=== PATIENT | female | born 1955 | race Caucasian/White ===

== ENCOUNTER 2016-06-20 15:18 | Day surgery (SDC) | payer BC ==
[~2016-06-20] VITALS: Ht 162.6 cm; Wt 89.4 kg
--- NOTE | 2016-06-20 17:06 | DIAGNOSTIC IMAGING REPORT ---
PROCEDURE: XR HIP 2VW W W/O AP PELVIS-RT INDICATION: TRAUMA/INJURY TECHNIQUE: AP view of the pelvis and hips with lateral view of the right hip. COMPARISON: None. FINDINGS: RIGHT HIP: Total hip arthroplasty components are in present. There is an anterior, slightly superior dislocation of the femoral acetabular joint. No fracture. PELVIS: Mildly decreased mineralization. Left hip arthroplasty components in anatomic position. No pelvic fractures. 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 Vascular calcifications in the pelvis. No suspicious soft tissue calcification. IMPRESSION: 1. Anteriorly, and severely dislocated right hip arthroplasty components. 2. No evidence of fracture. 3. Left hip arthroplasty components in anatomic position.
--- NOTE | 2016-06-20 21:06 | ED ORDER SUMMARY ---
..... Patient: CARMELLA CLAIRE OrderSheet [facility] VisitID: [id number] [address] [place] [address] 60y, F Registration Date/Time: 06/20/2016 ORDER SHEET Weight: 86.1 kg (stated) Allergies: No Known Drug Allergy GENERAL ORDERS: Hip 2V Right w AP Pelvis Urgent (15:57 06/20/2016 Codie NOEL) (Ack 16:03 Jaye) (16:06 EHassan R.N.) Hip 1V Right Urgent (19:45 06/20/2016 Taya per protocol) (Ack 19:54 Taya) (20:06 RFay) CBC w Diff Urgent (20:56 06/20/2016 Yasmine R.N. verbal order read back to Codie NOEL) (Ack 21:02 Taya) (21:18 EHassan R.N.) CMP Urgent (20:56 06/20/2016 Yasmine R.N. verbal order read back to Codie NOEL) (Ack 21:02 Taya) (21:18 EHassan R.N.) BMP Urgent (20:56 06/20/2016 Yasmine R.N. verbal order read back to Codie NOEL) (Ack 21:02 Taya) (21:18 EHassan R.N.) MEDICATION ORDERS: IV FLUIDS: Dilaudid IV 2 mg (NOW) (15:53 06/20/2016 Yasmine R.N. verbal order read back to Codie NOEL) (16:06 EHassan R.N.) Toradol IV 30 mg (NOW) (15:57 06/20/2016 Codie NOEL) (16:06 EHassan R.N.) Propofol IV 1 vial to bedside (HIGH ALERT MEDICATION) (17:30 06/20/2016 Codie NOEL) (19:20 EHassan R.N.) Dilaudid IV 2 mg (HIGH ALERT MEDICATION, NOW) (18:54 06/20/2016 Codie NOEL) (19:19 EHassan R.N.) ORDER SHEET NOTES: [Electronically signed by Jennie Barr R.N. (23:06/20/2016)] [Electronically signed by Carmella Martin MD (06:12 06/25/2016)] [Electronically locked/signed by Jennie Barr R.N. (23:06/20/2016)]
--- NOTE | 2016-06-20 21:06 | ED CLINICAL REPORT ---
Clinical Report - Physicians/Mid Levels [facility] [address] [place] [address] 06/20/2016 15:20 Patient: CARMELLA CLAIRE Time Seen: 15:21. Arrived- By private vehicle. Historian- patient. HISTORY OF PRESENT ILLNESS Chief Complaint: RIGHT HIP INJURY. The injury occurred just prior to arrival. (PT was stretching, and felt her hip pop out. Pt states this happened once, a year ago.). (gym). The patient complains of moderate pain. No blow to the head, neck pain, loss of consciousness or seizure. Not dazed. (Medics report that pt bit one of them en-route, stating it was because she was hurting.). REVIEW OF SYSTEMS No numbness, hearing loss, headache, loss of vision or chest pain. No weakness, abdominal pain, nausea, difficulty breathing or bladder dysfunction. No laceration, fever or vomiting. Has not recently been ill. All systems otherwise negative, except as recorded above. PAST HISTORY Problems: no known problems. Additional Surgeries: Hip Prosthesis. Medications: Oxybutynin Chloride Oral 15 mg, at bedtime. Oxybutynin Chloride Oral 15 mg, at bedtime. Oxybutynin Chloride Oral 15 mg, at bedtime. Allergies: No Known Drug Allergy. SOCIAL HISTORY Smoker- current status unknown. Occasional alcohol use. No drug use. ADDITIONAL NOTES The nursing notes have been reviewed. PHYSICAL EXAM Vital Signs: 06/20/2016 15:17 BP: 133/63. HR: 89. RR: 18. O2 saturation: 100%. Temp: 98.2 F. Pain level now: 7/10. Have been reviewed. Appearance: Alert. Oriented X3. No acute distress. (Pt appears in moderate discomfort, worse with any movement that causes even slight movement of her hip.). Head: Head non-tender. No swelling of head. Eyes: Pupils equal, round and reactive to light. EOM intact. ENT: No dental injury. Neck: Painless ROM. Non-tender. CVS: Heart sounds normal. Pulses normal. Respiratory: Breath sounds normal. Chest nontender. Abdomen: No visible injury. Soft and nontender. Back: No tenderness. ROM normal. Skin: Skin intact. Skin warm and dry. Normal skin color. Normal skin turgor. Extremities: Pelvis stable. Right hip: moderate tenderness located in the anterior and lateral aspect of the hip. The right leg is adducted. Limited ROM secondary to pain. Neurovascular intact distally. No erythema, swelling, laceration, abrasion or ecchymosis. No puncture wound, foreign body or deformity. The right leg is not shortened, externally rotated, internally rotated, flexed or abducted. (Distal pulses are intact.). Neuro: Oriented X 3. No motor deficit. No sensory deficit. LABS, X-RAYS, AND EKG Rt Hip X-ray: No fracture. No bony lesion, air in the soft tissue or foreign body. Anterior dislocation of the hip. No fracture. Soft tissues normal. (Pt is noted to have a total hip replacement.). Views: 2 view hip series. Technique: good. The X-rays were independently viewed by me, interpreted by the radiologist and contemporaneously by me and discussed with the radiologist. Prior films were not available for comparison. Pulse Oximetry: 06/20/2016 15:17 O2 saturation: 100%. (FIO2 - room air). Interpretation: normal. PROGRESS AND PROCEDURES Procedural Sedation: Indication: Reduction of dislocation of hip. Last po intake: patient had lunch. ASA classification: 1 - normal healthy patient. History / physical exam. See physical exam recorded above. She has no history of an adverse anesthesia reaction or family history of an adverse anesthesia reaction. Normal airway anatomy. Preparation: consent was obtained and the risks of the procedure, benefits and alternatives were explained to patient. IV established. O2 administered. Placed on pulse oximeter and roller presser operator. Suction was made available. Medications: Propofol IV administered by physician. Patient status during sedation: was asleep with sluggish response to stimulation. Vitals were stable. Oxygen saturation levels were normal. The airway was maintained. The recovery was uneventful. Complications: None. Post-procedure: Recovery was uneventful. Returned to baseline. Mental status normal. No acute distress. Sedation and procedure performed by me; intra-service time 1-15 minutes. ( Pt did require multiple doses of propofol, with a total of 200mg, and was still moaning during efforts.). Reduction of Dislocated Hip: IV established. O2 administered. Placed on pulse oximeter and roller presser operator. Sciatic nerve intact pre-procedure. Given Propofol. Hip prosthesis present. Reassessed post-procedure: neurovascular status intact; sciatic nerve function appears normal. Reduction of the anterior hip dislocation was attempted by adduction, external rotation, and counter-traction at the base of the femur, as recommended by the orthopedist. This was attempted several times while the pt was sedated, without success. Course of Care: Pt was given Dilaudid for pain. Sedation and reduction attempts as above. Discussed case with health care provider (Gary/ortho: will take pt to OR for reduction). Reviewed test results. Agreed upon treatment plan. Health care provider will see patient in ED. Patient and spouse counseled in person regarding the patient's stable but serious condition, test results, diagnosis and need for surgery. Concerns were addressed. Old medical records reviewed. Disposition: Admitted via Surgery. Condition: stable. CLINICAL IMPRESSION Right anterior hip dislocation. (Electronically signed by Carmella Martin MD 06/25/2016 6:12)
--- NOTE | 2016-06-20 21:06 | ED ORDER SUMMARY ---
..... Patient: CARMELLA CLAIRE OrderSheet [facility] VisitID: [id number] [address] [place] [address] 60y, F Registration Date/Time: 06/20/2016 ORDER SHEET Weight: 86.1 kg (stated) Allergies: No Known Drug Allergy GENERAL ORDERS: Hip 2V Right w AP Pelvis Urgent (15:57 06/20/2016 Codie NOEL) (Ack 16:03 Jaye) (16:06 EHassan R.N.) Hip 1V Right Urgent (19:45 06/20/2016 Taya per protocol) (Ack 19:54 Taya) (20:06 RFay) CBC w Diff Urgent (20:56 06/20/2016 Yasmine R.N. verbal order read back to Codie NOEL) (Ack 21:02 Taya) (21:18 EHassan R.N.) CMP Urgent (20:56 06/20/2016 Yasmine R.N. verbal order read back to Codie NOEL) (Ack 21:02 Taya) (21:18 EHassan R.N.) BMP Urgent (20:56 06/20/2016 Yasmine R.N. verbal order read back to Codie NOEL) (Ack 21:02 Taya) (21:18 EHassan R.N.) MEDICATION ORDERS: IV FLUIDS: Dilaudid IV 2 mg (NOW) (15:53 06/20/2016 Yasmine R.N. verbal order read back to Codie NOEL) (16:06 EHassan R.N.) Toradol IV 30 mg (NOW) (15:57 06/20/2016 Codie NOEL) (16:06 EHassan R.N.) Propofol IV 1 vial to bedside (HIGH ALERT MEDICATION) (17:30 06/20/2016 Codie NOEL) (19:20 EHassan R.N.) Dilaudid IV 2 mg (HIGH ALERT MEDICATION, NOW) (18:54 06/20/2016 Codie NOEL) (19:19 EHassan R.N.) ORDER SHEET NOTES: [Electronically signed by Jennie Barr R.N. (23:06/20/2016)] [Electronically signed by Carmella Martin MD (06:12 06/25/2016)] [Electronically locked/signed by Jennie Barr R.N. (23:06/20/2016)]
--- NOTE | 2016-06-20 21:06 | ED CLINICAL REPORT ---
Clinical Report - Physicians/Mid Levels [facility] [address] [place] [address] 06/20/2016 15:20 Patient: CARMELLA CLAIRE Time Seen: 15:21. Arrived- By private vehicle. Historian- patient. HISTORY OF PRESENT ILLNESS Chief Complaint: RIGHT HIP INJURY. The injury occurred just prior to arrival. (PT was stretching, and felt her hip pop out. Pt states this happened once, a year ago.). (gym). The patient complains of moderate pain. No blow to the head, neck pain, loss of consciousness or seizure. Not dazed. (Medics report that pt bit one of them en-route, stating it was because she was hurting.). REVIEW OF SYSTEMS No numbness, hearing loss, headache, loss of vision or chest pain. No weakness, abdominal pain, nausea, difficulty breathing or bladder dysfunction. No laceration, fever or vomiting. Has not recently been ill. All systems otherwise negative, except as recorded above. PAST HISTORY Problems: no known problems. Additional Surgeries: Hip Prosthesis. Medications: Oxybutynin Chloride Oral 15 mg, at bedtime. Oxybutynin Chloride Oral 15 mg, at bedtime. Oxybutynin Chloride Oral 15 mg, at bedtime. Allergies: No Known Drug Allergy. SOCIAL HISTORY Smoker- current status unknown. Occasional alcohol use. No drug use. ADDITIONAL NOTES The nursing notes have been reviewed. PHYSICAL EXAM Vital Signs: 06/20/2016 15:17 BP: 133/63. HR: 89. RR: 18. O2 saturation: 100%. Temp: 98.2 F. Pain level now: 7/10. Have been reviewed. Appearance: Alert. Oriented X3. No acute distress. (Pt appears in moderate discomfort, worse with any movement that causes even slight movement of her hip.). Head: Head non-tender. No swelling of head. Eyes: Pupils equal, round and reactive to light. EOM intact. ENT: No dental injury. Neck: Painless ROM. Non-tender. CVS: Heart sounds normal. Pulses normal. Respiratory: Breath sounds normal. Chest nontender. Abdomen: No visible injury. Soft and nontender. Back: No tenderness. ROM normal. Skin: Skin intact. Skin warm and dry. Normal skin color. Normal skin turgor. Extremities: Pelvis stable. Right hip: moderate tenderness located in the anterior and lateral aspect of the hip. The right leg is adducted. Limited ROM secondary to pain. Neurovascular intact distally. No erythema, swelling, laceration, abrasion or ecchymosis. No puncture wound, foreign body or deformity. The right leg is not shortened, externally rotated, internally rotated, flexed or abducted. (Distal pulses are intact.). Neuro: Oriented X 3. No motor deficit. No sensory deficit. LABS, X-RAYS, AND EKG Rt Hip X-ray: No fracture. No bony lesion, air in the soft tissue or foreign body. Anterior dislocation of the hip. No fracture. Soft tissues normal. (Pt is noted to have a total hip replacement.). Views: 2 view hip series. Technique: good. The X-rays were independently viewed by me, interpreted by the radiologist and contemporaneously by me and discussed with the radiologist. Prior films were not available for comparison. Pulse Oximetry: 06/20/2016 15:17 O2 saturation: 100%. (FIO2 - room air). Interpretation: normal. PROGRESS AND PROCEDURES Procedural Sedation: Indication: Reduction of dislocation of hip. Last po intake: patient had lunch. ASA classification: 1 - normal healthy patient. History / physical exam. See physical exam recorded above. She has no history of an adverse anesthesia reaction or family history of an adverse anesthesia reaction. Normal airway anatomy. Preparation: consent was obtained and the risks of the procedure, benefits and alternatives were explained to patient. IV established. O2 administered. Placed on pulse oximeter and ekg monitor tech. Suction was made available. Medications: Propofol IV administered by physician. Patient status during sedation: was asleep with sluggish response to stimulation. Vitals were stable. Oxygen saturation levels were normal. The airway was maintained. The recovery was uneventful. Complications: None. Post-procedure: Recovery was uneventful. Returned to baseline. Mental status normal. No acute distress. Sedation and procedure performed by me; intra-service time 1-15 minutes. ( Pt did require multiple doses of propofol, with a total of 200mg, and was still moaning during efforts.). Reduction of Dislocated Hip: IV established. O2 administered. Placed on pulse oximeter and ekg monitor tech. Sciatic nerve intact pre-procedure. Given Propofol. Hip prosthesis present. Reassessed post-procedure: neurovascular status intact; sciatic nerve function appears normal. Reduction of the anterior hip dislocation was attempted by adduction, external rotation, and counter-traction at the base of the femur, as recommended by the orthopedist. This was attempted several times while the pt was sedated, without success. Course of Care: Pt was given Dilaudid for pain. Sedation and reduction attempts as above. Discussed case with health care provider (Gary/ortho: will take pt to OR for reduction). Reviewed test results. Agreed upon treatment plan. Health care provider will see patient in ED. Patient and spouse counseled in person regarding the patient's stable but serious condition, test results, diagnosis and need for surgery. Concerns were addressed. Old medical records reviewed. Disposition: Admitted via Surgery. Condition: stable. CLINICAL IMPRESSION Right anterior hip dislocation. (Electronically signed by Carmella Martin MD 06/25/2016 6:12)
--- NOTE | 2016-06-20 21:06 | ED NURSING NOTES ---
Clinical Report - Nurses [facility] [address] [place] [address] 06/20/2016 15:20 Patient: JB CLAIRE TRIAGE Triage time 1515 PM. Acuity: LEVEL 4. Alert. No acute distress. ALEKSANDAR COMA SCORE: Aleksandar Coma Scale: 15- eyes open spontaneously (4); best verbal response- oriented x 4 (5); best motor response- obeys commands (6). --15:31 Jennie Barr R.N. 15:17 06/20/16. BP: 133/63. HR: 89. RR: 18. O2 saturation: 100% on room air. Temp: 98.2 F (oral). Pain level now: 10. --15:31 Jennie Barr R.N. Acuity: LEVEL 2. --17:48 Yaima Benz R.N. Chief Complaint: (Hip dislocation). --22:59 Jennie Barr R.N. Weight: 86.1 kg stated. Height/Length: 64 inches Per Patient. BMI: 32.6. --15:17 Jennie Barr R.N. Medications Oxybutynin Chloride Oral 15 mg, at bedtime. --15:22 Jennie Barr R.N. Medication/allergy information source: the patient. --15:31 Jennie Barr R.N. Allergies No Known Drug Allergy. --15:21 Jennie Barr R.N. History Arrived by EMS. Historian: patient. Primary physician ([place] chung- Dr. Perez). ( Pt brought by EMS from the gym. Pt states that while stretching (hanging from the monkey bars) trying to stretch her back, feet on the ground and unsure of how her right hip pop. Pt denies any hyper extending at the time. Pt has pain and admits to some numbness in her right foot). This occurred today. Occurred (gym). The patient has had numbness. No loss of consciousness. No headache, neck pain, back pain or weakness. Treatment SENIOR CYTOGENETIC TECHNOLOGIST: None. Trauma activation: Pre-hospital notification of patient arrival was received. PAST MEDICAL HX: Tetanus status: unknown. Immunizations: up-to-date. The patient is post-menopausal. SOCIAL HX: Former smoker, end date 1997. Occasional alcohol use; consumes three glasses of wine. No drug use. ABUSE ASSESSMENT: No report of abuse. SELF HARM ASSESSMENT: A self harm assessment was performed. The patient answered "no" to the question "Do you have thoughts of harming or killing yourself?" and "Have you recently had thoughts about harming or killing others?". FALL RISK ASSESSMENT: Fall risk assessment completed. No fall risk identified. NUTRITIONAL RISK ASSESSMENT: The nutritional risk assessment revealed no deficiencies. FUNCTIONAL ASSESSMENT: Functional assessment: no impairments noted. LEARNING NEEDS ASSESSMENT: The learning needs assessment revealed no barriers. SKIN INTEGRITY ASSESSMENT: Skin integrity risk assessment completed. No skin integrity risk identified. --15:31 Jennie Barr R.N. Interventions ID band on patient. --15:31 Jennie Barr R.N. PHYSICAL ASSESSMENT To room via stretcher. GENERAL / NEURO / PSYCH: Alert. Oriented X 4. Appears in no acute distress. The patient has had new onset of constant numbness of the right foot. RESPIRATORY: Respirations not labored. Breath sounds within normal limits. CVS: Pulses within normal limits. Pulses: right dorsalis pedis 4+ and right posterior tibial 4+. Capillary refill less than 2 seconds. GI / : Abdomen soft and nontender. EXTREMITIES: Neuro-vascular status intact to the extremity. Right hip: tenderness of the anterior, medial and lateral aspect of the hip. Limited ROM secondary to pain. No deformity. SKIN: Skin intact. Skin is warm and dry. --15:32 Jennie Barr R.N. NURSING PROGRESS NOTES 15:32 06/20/16. BP: 121/75. HR: 86. RR: 15 (regular and unlabored). O2 saturation: 98% on room air. Pain level now: 11/01. --15:35 Jennie Barr R.N. The initial plan of care for this patient has been created This plan of care was discussed with the patient. Neuro-vascular extremity check distal to injury: pulses intact, no edema, capillary refill <2 seconds and sensation diminished (on top of right foot). Reassurance given. Two patient identifiers checked. Call light placed in reach. Side rails up x 2. Bed placed in lowest position. Brakes of bed on. --15:35 Jennie Barr R.N. 15:54 06/20/2016 Site #1 started via IV in the left antecubital space with an 20g angiocath; one attempt. Blood drawn: rainbow set. Labeled in the presence of the patient and sent to the lab. --15:54 Jennie Barr R.N. 16:06 06/20/2016 Dilaudid (HYDROmorphone HCl PF) IVP 2 mg given over 2 minute(s) via site #1. Allergies verified, confirmed 5 rights and sedative warning given to the patient and patient's family. IV patency established. IV site checked: no pain, redness, or swelling. IV flushed thoroughly pre- and post-medication administration. IVP given by RN. --16:06 Jennie Barr R.N. 16:06 06/20/2016 Toradol IVP 30 mg given over 30 second(s) via site #1. Allergies verified and confirmed 5 rights. IV patency established. IV site checked: no pain, redness, or swelling. IV flushed thoroughly pre- and post-medication administration. IVP given by RN. --16:06 Jennie Barr R.N. Patient gowned. Reassurance given. Reassessment after medication administered. She has had no adverse reaction. ( Pt taken off the board, being xray now, IV placed and pain meds given as ordered with good relief. Family updated and at bedside.). Patient transported to radiology by stretcher. (1616 PM). Two patient identifiers checked. --16:18 Jennie Barr R.N. 16:16 06/20/16. HR: 78. RR: 13. O2 saturation: 98% on room air. Pain level now: 08/02. --16:18 Jennie Barr R.N. 18:54 06/20/2016 Dilaudid (HYDROmorphone HCl PF) IVP 2 mg given over 2 minute(s) via site #1. Allergies verified, confirmed 5 rights and sedative warning given to the patient and patient's family. IV patency established. IV site checked: no pain, redness, or swelling. IV flushed thoroughly pre- and post-medication administration. IVP given by RN. --19:19 Jennie Barr R.N. 19:20 06/20/2016 PROPOFOL IVP 100 mg given over 5 minute(s) via site #1. Allergies verified and confirmed 5 rights. IV patency established. IV site checked: no pain, redness, or swelling. IV flushed thoroughly pre- and post-medication administration. IVP given by RN. --19:20 Jennie Barr R.N. ( Assumed care of Pt while Primary RN is on break. Pt is resting, stable, awaiting Ortho to reduce. Pt denies needs, spouse at bedside.). --20:25 Junior Cruz R.N. late entry - 17:00. --20:59 Jennie Barr R.N. 17:06 06/20/16. BP: 116/56 (regular adult cuff) taken on the right arm, via an automated monitor, while lying. HR: 74. RR: 15. O2 saturation: 100% on room air. Temp: 97.6 F (oral). Pain level now: 08/02. --20:59 Jennie Barr R.N. 18:09 06/20/16. BP: 101/73. HR: 87. RR: 19. O2 saturation: 99%. Temp: 98.2 F (oral). Pain level now: 10/02. --21:01 Jennie Barr R.N. late entry - 18:00. Reassurance given. Reassessment after medication administered. She is calm and resting quietly and has had no adverse reaction. GENERAL / NEURO / PSYCH: The patient reports pain. The patient reports numbness. Denies tingling. CVS: Capillary refill less than 2 seconds. GI / : Denies nausea or vomiting. SKIN: Skin is warm and dry. --21:01 Jennie Barr R.N. 19:00 06/20/16. BP: 117/62. HR: 95. RR: 18. O2 saturation: 100%. Pain level now: 10/02. --21:02 Jennie Barr R.N. ( Time out performed for right hip reduction, RT in place, monitoring in place, sedation administered as per MD. Pt tolerated procedure well, xray obtained, unable to reset, ortho called.). --21:05 Jennie Barr R.N. 19:30 06/20/16. BP: 125/60. HR: 74. RR: 14. O2 saturation: 100%. O2 started via nasal cannula at 2 liters/minute. Temp: 97.5 F (oral). Pain level now: 10/02. Additional comments: reduction iniated. --21:05 Jennie Barr R.N. 19:45 06/20/16. BP: 101/53 (regular adult cuff) taken on the right arm, via an automated monitor, while lying. HR: 88. RR: 12. O2 saturation: 97%. O2 started via nasal cannula at 2 liters/minute. Pain level now: 10/02. --21:07 Jennie Barr R.N. Reassurance given. ( Pt post procedure, aware of unable to reset hip in place. VSS, schofield maintained, hip precautions in place). Two patient identifiers checked. Call light placed in reach. --21:07 Jennie Barr R.N. 21:15 06/20/2016 Site #1 reassessed. Line flushed with saline. Converted to saline lock. Flushed with 10 mL saline. --21:15 Jennie Barr R.N. 21:07 06/20/16. BP: 112/58 (regular adult cuff) taken on the right arm, via an automated monitor, while lying. HR: 84. RR: 19. O2 saturation: 98% on room air. Temp: 98.2 F. Pain level now: 10/02. --21:15 Jennie Barr R.N. Cardiac rhythm: normal sinus rhythm. Neuro-vascular extremity check distal to injury: pulses intact, no edema, capillary refill <2 seconds and sensation intact. Reassurance given. The patient is calm and resting quietly and has had no adverse reaction. Overall patient status is the same- she states feels the same. ( Pt awaiting for OR team to come, ortho at bedside and explanation given. Consent obtained. NPO in place.). GENERAL / NEURO / PSYCH: The patient reports pain that is located in the right hip that is moderate in severity. She reports new onset of numbness of the right foot. Numbness is still present. Alert. Oriented X 4. CVS: Capillary refill less than 2 seconds. SKIN: Skin is warm and dry. Two patient identifiers checked. Call light placed in reach. Side rails up x 1. Bed placed in lowest position. Brakes of bed on. --21:15 Jennie Barr R.N. 19:54 06/20/2016 Dilaudid IVP Response: no adverse reaction pain is improving. Symptoms have improved the patient feels better. --21:19 Jennie Barr R.N. DISPOSITION / DISCHARGE Departure time: 2135 PM. Condition at departure: stable. The goals identified in the patient's plan of care were met. Transported via stretcher by nurse. Report was given to a nurse. Report included patient's care, treatment, medications, reviewed medication reconcilliation, and condition (including any recent changes or anticipated changes). All questions were answered. (ADRIANE Macedo). ( Pt transferred to OR via stretcher, NPO status in place, IV heplock.). FALL RISK ASSESSMENT: Fall risk assessment completed. No fall risk identified. --22:58 Jennie Barr R.N. 21:30 06/20/16. BP: 116/45. HR: 78. RR: 15. O2 saturation: 100% on room air. Temp: 98.4 F (oral). Pain level now: 10/02. --22:58 Jennie Barr R.N. Locked/Released at 06/20/2016 23:00 by Jennie Barr R.N.
--- NOTE | 2016-06-20 21:33 | HISTORY AND PHYSICAL ---
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 She dislocated her right hip again this evening. She was doing extension exercises at the gym. X-rays in the emergency department showed that the hip is dislocated anteriorly. There is no evidence of loosening on either the femoral side or the acetabular side. Her orthopedic surgeon is in [place] at [place]. 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 Past medical history is otherwise noncontributory. MEDICATIONS: 1. Oxybutynin. ALLERGIES: 1. SHE HAS NO ALLERGIES. SOCIAL HISTORY: The patient is a former smoker, but stopped in 1997. She uses occasional alcohol. FAMILY HISTORY: ------- REVIEW OF SYSTEMS: Otherwise, negative. She was having no trouble with the total hip prior to dislocation. PHYSICAL EXAMINATION: GENERAL: She is oriented x3. NECK: She has good motion of her cervical spine. LUNGS: Clear. HEART: Regular rate and rhythm. ABDOMEN: Soft, nontender, without masses. EXTREMITIES: External rotation and shortening of her right leg with pain with attempts at internal rotation and motion. She has palpable pulses distally and good sensation. NEUROLOGIC: Her cranial nerves are intact. IMPRESSION: 1. Dislocated right total hip replacement. PLAN: The patient had an attempted reduction in the emergency department by the emergency department doctor, which was unsuccessful. She is going to go to the operating room for a closed reduction under anesthesia with an image intensifier. We discussed treatment options and complications including but not limited to femur fracture, nerve and vessel injury, deep venous thrombosis, pneumonia, stroke, heart attack, and possible . She understands and agrees. Her was present and he also agreed.
--- NOTE | 2016-06-20 22:00 | DIAGNOSTIC IMAGING REPORT ---
PROCEDURE: XR HIP 1 VIEW - RIGHT INDICATION: PAIN TECHNIQUE: Single AP view right hip COMPARISON: 1621 hours FINDINGS: Persistent anterior superior femoral acetabular arthroplasty component dislocation. No new fracture. IMPRESSION: 1. Persistent right hip dislocation.
[2016-06-20 22:48] VITALS: BP 99/62
[2016-06-20 23:00] VITALS: BP 105/59
[2016-06-20 23:15] VITALS: BP 116/92
[2016-06-20 23:40] VITALS: BP 122/98
[2016-06-21 00:34] VITALS: BP 114/70
[2016-06-21 01:30] VITALS: BP 103/56
--- NOTE | 2016-06-21 05:50 | Provider's Discharge Care Plan ---
Problem, Goal, Plan Problem List 1. Dislocation of right hip
--- NOTE | 2016-06-21 05:50 | Provider's Discharge Care Plan ---
Problem, Goal, Plan Problem List 1. Dislocation of right hip
[2016-06-21 06:39] VITALS: BP 99/53
--- NOTE | 2016-06-21 09:07 | DIAGNOSTIC IMAGING REPORT ---
PROCEDURE: XR FLUOROSCOPY UP TO 1 HOUR INDICATION: Right hip dislocation. TECHNIQUE: C-arm fluoroscopy time was provided to Dr. Vega for fluoroscopic procedure (32-second, 13.3 mGy). AP and lateral C-arm views were obtained. COMPARISON: Comparison made radiographs of the right hip earlier in the day (06/20/2016). FINDINGS: Three views. There has been reduction of dislocated right femoral head prosthesis which is now located in the acetabular component out (anatomic position). IMPRESSION: 1. C-arm fluoroscopy for reduction of dislocated right total hip prosthesis (anatomic position).
--- NOTE | 2016-06-21 09:43 | DISCHARGE SUMMARY ---
ADMIT DATE: 06/20/2016 DISCHARGE DATE: 06/21/2016 DISCHARGE DIAGNOSIS: 1. Dislocated right total hip replacement BRIEF HISTORY: The patient is a 60-year-old woman who is 4 years status post revision right total hip replacement and 9 months status post subsequent dislocation. On the day of admission, she was doing exercises in some extension and felt her right hip dislocate. She was taken by ambulance to [facility] emergency department. HOSPITAL COURSE: From there, she was admitted to the hospital and an attempt at reduction in the emergency room was unsuccessful. She subsequently had a closed reduction in the operating room under general anesthetic, successfully. She tolerated that procedure well. DISCHARGE INSTRUCTIONS/MEDICATIONS: At the time of discharge, she is taking [place] 325/5 mg for pain. She continues her home medications. She is wearing a hip brace previously fitted for her previous dislocation. She is full weightbearing and following up with her orthopedic surgeon in [place] today. She tolerated her hospitalization well.
--- NOTE | 2016-06-25 06:12 | ED DISCHARGE INSTRUCTIONS ---
Patient: CARMELLA CLAIRE General Instructions [facility] VisitID: [id number] [address] [place] [address] 60y, F Registration Date/Time: 06/20/2016 Right anterior hip dislocation. (Electronically signed by Carmella Martin MD 06/25/2016 6:12)
--- NOTE | 2016-06-25 06:12 | ED MAR SUMMARY ---
..... Medication Administration Record [facility] [address] [place] [address] Patient: JB CLAIRE Visit ID: [id number] 60y, F Weight: 86.1 kg Height/Length: 64 in BMI: 32.6 ALLERGIES: No Known Drug Allergy Given 16:06 06/20/2016 Jennie Barr R.N. Medication Administered: DILAUDID [IVP] (HYDROMORPHONE HCL PF), Dose: 2 mg IVP over 2 minute(s), Site: #1 left AC. Medication Ordered: Dilaudid IV 2 mg (NOW). Given 16:06 06/20/2016 Jennie Barr R.N. Medication Administered: TORADOL [IVP], Dose: 30 mg IVP over 30 second(s), Site: #1 left AC. Medication Ordered: Toradol IV 30 mg (NOW). Given 18:54 06/20/2016 Jennie Barr R.NBari Medication Administered: DILAUDID [IVP] (HYDROMORPHONE HCL PF), Dose: 2 mg IVP over 2 minute(s), Site: #1 left AC. Medication Ordered: Dilaudid IV 2 mg (HIGH ALERT MEDICATION, NOW). Given 19:20 06/20/2016 Jennie Barr R.N. Medication Administered: PROPOFOL [IVP], Dose: 100 mg IVP over 5 minute(s), Site: #1 left AC. Medication Ordered: Propofol IV 1 vial to bedside (HIGH ALERT MEDICATION).
--- NOTE | 2016-06-25 06:12 | ED MED RECONCILIATION SUMMARY ---
Patient: JB CLAIRE Medication Reconciliation Report [facility] VisitID: [id number] [address] [place] [address] 60y, F Registration Date/Time: 06/20/2016 Weight: 86.1 kg Height/Length: 64 in. BMI: 32.6 ALLERGIES: No Known Drug Allergy The patient's Home Medications are listed below: THE FOLLOWING MEDICATIONS NEED TO BE RECONCILED: Oxybutynin Chloride Oral 15 mg, at bedtime Oxybutynin Chloride Oral 15 mg, at bedtime Oxybutynin Chloride Oral 15 mg, at bedtime The source(s) of the original Home Medication information: patient The following Medications were given to the patient in the Emergency Department: Dilaudid [IVP] IVP 2 mg, administered: 06/20/2016 4:06:00 PM Toradol [IVP] IVP 30 mg, administered: 06/20/2016 4:06:00 PM Dilaudid [IVP] IVP 2 mg, administered: 06/20/2016 6:54:00 PM PROPOFOL [IVP] IVP 100 mg, administered: 06/20/2016 7:20:00 PM The following Medications were prescribed to the patient: None.
--- NOTE | 2016-06-25 06:12 | ED MED RECONCILIATION SUMMARY ---
Patient: JB CLAIRE Medication Reconciliation Report [facility] VisitID: [id number] [address] [place] [address] 60y, F Registration Date/Time: 06/20/2016 Weight: 86.1 kg Height/Length: 64 in. BMI: 32.6 ALLERGIES: No Known Drug Allergy The patient's Home Medications are listed below: THE FOLLOWING MEDICATIONS NEED TO BE RECONCILED: Oxybutynin Chloride Oral 15 mg, at bedtime Oxybutynin Chloride Oral 15 mg, at bedtime Oxybutynin Chloride Oral 15 mg, at bedtime The source(s) of the original Home Medication information: patient The following Medications were given to the patient in the Emergency Department: Dilaudid [IVP] IVP 2 mg, administered: 06/20/2016 4:06:00 PM Toradol [IVP] IVP 30 mg, administered: 06/20/2016 4:06:00 PM Dilaudid [IVP] IVP 2 mg, administered: 06/20/2016 6:54:00 PM PROPOFOL [IVP] IVP 100 mg, administered: 06/20/2016 7:20:00 PM The following Medications were prescribed to the patient: None.
--- NOTE | 2016-06-25 06:12 | ED DISCHARGE INSTRUCTIONS ---
Patient: CARMELLA CLAIRE General Instructions [facility] VisitID: [id number] [address] [place] [address] 60y, F Registration Date/Time: 06/20/2016 Right anterior hip dislocation. (Electronically signed by Carmella Martin MD 06/25/2016 6:12)
--- NOTE | 2016-06-25 06:12 | ED MAR SUMMARY ---
..... Medication Administration Record [facility] [address] [place] [address] Patient: JB CLAIRE Visit ID: [id number] 60y, F Weight: 86.1 kg Height/Length: 64 in BMI: 32.6 ALLERGIES: No Known Drug Allergy Given 16:06 06/20/2016 Jennie Barr R.N. Medication Administered: DILAUDID [IVP] (HYDROMORPHONE HCL PF), Dose: 2 mg IVP over 2 minute(s), Site: #1 left AC. Medication Ordered: Dilaudid IV 2 mg (NOW). Given 16:06 06/20/2016 Jennie Barr R.N. Medication Administered: TORADOL [IVP], Dose: 30 mg IVP over 30 second(s), Site: #1 left AC. Medication Ordered: Toradol IV 30 mg (NOW). Given 18:54 06/20/2016 Jennie Barr R.NBari Medication Administered: DILAUDID [IVP] (HYDROMORPHONE HCL PF), Dose: 2 mg IVP over 2 minute(s), Site: #1 left AC. Medication Ordered: Dilaudid IV 2 mg (HIGH ALERT MEDICATION, NOW). Given 19:20 06/20/2016 Jennie Barr R.N. Medication Administered: PROPOFOL [IVP], Dose: 100 mg IVP over 5 minute(s), Site: #1 left AC. Medication Ordered: Propofol IV 1 vial to bedside (HIGH ALERT MEDICATION).
--- NOTE | 2016-07-07 09:41 | OPERATIVE REPORT ---
DATE OF SURGERY: 06/20/2016 SURGEON: Araceli Vega MD PREOPERATIVE DIAGNOSIS: Dislocated right total hip replacement. POSTOPERATIVE DIAGNOSIS: Dislocated right total hip replacement. PROCEDURE PERFORMED: 1. Closed reduction right dislocated total hip replacement. DESCRIPTION OF PROCEDURE: The patient was placed in supine position on the operating table and after general anesthesia was obtained, her right leg was positioned on the radiolucent table and the image intensifier was brought in to assist with the reduction. After the patient had had sufficient anesthesia and was briefly paralyzed, axial traction was placed on the leg and the hip reduced spontaneously. The patient had brought a post-reduction brace with her from her previous dislocation and that brace was applied. The image intensifier was used to confirm reduction, both pre and post-brace application. The patient was then placed back on a gurney, and taken to the recovery room in stable condition.
== END 2016-06-21 09:10 | disposition home or self-care (01) ==
LOC: ED SRH 15:18 → SDC SRH 21:39 → TRANS SRH 21:41 → ACUTE2 SRH 22:58 → SDC SRH 06-21 09:10
PROC: 0SWRXJZ Revision of Synthetic Substitute in Right Hip Joint, Femoral Surface, External Approach (ICD-10-PCS; principal; 2016-06-21)
DX: T84.020A Dislocation of internal right hip prosthesis, initial encounter (principal); X50.9XXA Other and unspecified overexertion or strenuous movements or postures, initial encounter; Y93.89 Activity, other specified; Y92.39 Other specified sports and athletic area as the place of occurrence of the external cause; Y99.8 Other external cause status